=== PATIENT | female | born 1975 | race Two or more races ===

== ENCOUNTER 2021-01-01 19:06 | Emergency (ER) | payer MEDICAID ==
[~2021-01-01] VITALS: Ht 160 cm; Wt 81.6 kg
[2021-01-01] MEDS: IV NS 0.9% 1,000 ML BAG IV ONE ×2 (20:15→21:15)
[2021-01-01] MEDS ORDERED: CIPR5DRO LEFTEYE (20:38)
[2021-01-01] MEDS ORDERED: FLUORESCEIN SODIUM OPHTH 1 EA STRIP ONE (21:10)
[2021-01-01] MEDS: TETRAcaine 5 ML BOTTLE LEFTEYE ONE (21:26)
--- NOTE | 2021-01-01 21:26 | NUR ---
PT OK TO DISCHARGE PER JOSIE RIVAS.
[2021-01-01 23:35] VITALS: BP 132/79
== END 2021-01-01 23:35 | disposition home or self-care (01) ==
LOC: ER 19:08
DX: H10.212 Acute toxic conjunctivitis, left eye (principal); Z79.899 Other long term (current) drug therapy
CPT/HCPCS: 99284; J7030